=== PATIENT | female | born 1990 | race Caucasian/White ===

== ENCOUNTER 2018-09-17 11:07 | Emergency (ER) | payer OTHER ==
[~2018-09-17] VITALS: Ht 165.1 cm; Wt 90.7 kg
[~2018-09-17 11:07] MED LIST: ALBU90OI INH; ALLEGRA ALLERG180 MG PO; Ativan0.5 MG PO; DEEP SEA45 ML; IBUP800 PO; Prednisone20 MG PO
[2018-09-17] MEDS ORDERED: Norco 5-325 Ta1 EACH PO (12:02)
[2018-09-17] MEDS ORDERED: Crutch1 EACH MISC ×2 (12:03→12:04)
== END 2018-09-17 12:55 | disposition home or self-care (01) ==
LOC: ER 11:07
DX: S82.841A Displaced bimalleolar fracture of right lower leg, initial encounter for closed fracture (principal); X50.9XXA Other and unspecified overexertion or strenuous movements or postures, initial encounter; F17.200 Nicotine dependence, unspecified, uncomplicated
CPT/HCPCS: 29515; 73610; 99283-25

== ENCOUNTER 2018-09-27 10:39 | Day surgery (SDC) | payer OTHER ==
[~2018-09-27] VITALS: Ht 165.1 cm; Wt 99.5 kg
[~2018-09-27 10:39] MED LIST changes: +Crutch1 EACH MISC; +Norco 5-325 Ta1 EACH PO
--- NOTE | 2018-09-27 12:01 | NUR ---
09/27/18 1201 Mary Kay Mireles PREOP TEACHING COMPLETED AT THIS TIME. CALL LIGHT WITHIN REACH. VALENTINE AT BEDSIDE. WARM BLANKET PROVIDED.
--- NOTE | 2018-09-27 16:45 | NUR ---
09/27/18 1645 Zoey Patel PT IS IN THE RECLINER AT THIS TIME. PT IS ACCOMPANIED BY HER FIANCE. VSS. WARM BLANKETS HAVE BEEN PROVIDED. PATIENT DENIES NAUSEA AND IS TOLERATING PO FLUIDS AND SNACKS WELL. PT DENIES PAIN. OP LEG IS ELEVATED ON PILLOWS. PT STATED UPON ARRIVING TO STEP DOWN THAT SHE WAS "FEELING VERY ANXIOUS." RN NOTIFIED DR CONCEPCION. RN ADMINISTERED IV ATIVAN ORDERED BY DR CONCEPCION AT [id number]. PT STATES THAT SHE IS NOW "FEELING MUCH BETTER." CALL LIGHT IN REACH.
== END 2018-09-27 17:31 | disposition home or self-care (01) ==
LOC: ORSCSDS 10:39
PROVIDERS: Orthopaedic Surgery
PROC: 0QSG04Z Reposition Right Tibia with Internal Fixation Device, Open Approach (ICD-10-PCS; principal; 2018-09-27 12:00)
PROC: 0QSJ04Z Reposition Right Fibula with Internal Fixation Device, Open Approach (ICD-10-PCS; principal; 2018-09-27 12:00)
DX: S82.841A Displaced bimalleolar fracture of right lower leg, initial encounter for closed fracture (principal); F17.210 Nicotine dependence, cigarettes, uncomplicated; E66.01 Morbid (severe) obesity due to excess calories; Z68.36 Body mass index [BMI] 36.0-36.9, adult
CPT/HCPCS: C1713; C1769; J1100; J1885; J2060; J2250; J2405; J2704; J3010; J3370; J7120

== ENCOUNTER 2019-10-24 13:35 | Emergency (ER) | payer OTHER ==
[~2019-10-24] VITALS: Ht 165.1 cm; Wt 90.7 kg
== END 2019-10-24 15:06 | disposition home or self-care (01) ==
LOC: ER 13:35
DX: M25.471 Effusion, right ankle (principal); F17.210 Nicotine dependence, cigarettes, uncomplicated; Z88.0 Allergy status to penicillin
CPT/HCPCS: 73610; 99283-25

== ENCOUNTER 2020-03-14 11:49 | Emergency (ER) | payer OTHER ==
[~2020-03-14] VITALS: Ht 165.1 cm; Wt 90.7 kg
[2020-03-14] MEDS ORDERED: LEVSOD100 PO (12:02)
== END 2020-03-14 13:19 | disposition home or self-care (01) ==
LOC: ER 11:49
DX: J06.9 Acute upper respiratory infection, unspecified (principal); F17.210 Nicotine dependence, cigarettes, uncomplicated; Z79.899 Other long term (current) drug therapy; Z88.0 Allergy status to penicillin
CPT/HCPCS: 71045; 99284-25

== ENCOUNTER → 2021-01-23 | Outpatient (CLI) | payer OTHER ==
[~2021-01-23] MED LIST changes: +LEVSOD100 PO
[2021-01-23 23:18] LABS: Free Thyroxine 1.07 ng/dL (0.70-1.60); Thyroid Stimulating Hormone 18.8 uIU/mL (0.360-4.800); Triiodothyronine, Free 2.19 pg/mL (2.18-3.98)
== END ==
LOC: LAB 19:46 → LAB SHORT 19:46
PROVIDERS: Nurse Practitioner Family
DX: E03.9 Hypothyroidism, unspecified (principal)
CPT/HCPCS: 84439; 84443; 84481